=== PATIENT | female | born 1940 | race Caucasian/White ===

== ENCOUNTER 2018-09-08 02:08 | Outpatient (CLI) | payer MEDICARE, SELFPAY ==
[2018-09-08 11:29] LABS: Hemoglobin A1C 5.9 % (4.5-6.2)
[2018-09-08 11:32] LABS: ALT 20 U/L (12-78); AST 14 U/L (15-37); Albumin 3.7 g/dL (3.4-5.0); Alkaline Phosphatase 77 U/L (46-116); Anion Gap 13.5 mmol/L (3-11); BUN 31 mg/dL (7-18); Bilirubin, Total 0.5 mg/dL (0.2-1.0); CO2 23.5 mmol/L (21.0-32.0); CREATININE 1.44 mg/dL (0.55-1.02); Calcium 9.5 mg/dL (8.5-10.1); Calculated LDL 98 mg/dL; Chloride 97 mmol/L (98-107); Cholesterol 177 mg/dL (50-200); Estimated GFR 35.11 (mL/min/1.73m2); Glucose 103 mg/dL (70-100); HDL Cholesterol 59 mg/dL (40-60); Potassium 4.5 mmol/L (3.5-5.1); Sodium 134 mmol/L (136-145); TSH (W/Ref FT4) 1.32 uIU/mL (0.358-3.74); Total Protein 7.1 g/dL (6.4-8.2); Triglyceride 101 mg/dL (30-150)
== END 2018-09-08 02:28 ==
PROVIDERS: PCP Family Medicine; Visit Provider Family Medicine
DX: E11.29 Type 2 diabetes mellitus with other diabetic kidney complication (principal); E78.5 Hyperlipidemia, unspecified
CPT/HCPCS: 36415; 80053; 80061; 83721; 83036; 84443

== ENCOUNTER 2019-11-10 02:53 | Outpatient (CLI) | payer MEDICARE, BC, SELFPAY ==
[2019-11-10 12:38] LABS: CREATININE 1.27 mg/dL (0.55-1.02); Calculated LDL 117 mg/dL (<100); Cholesterol 206 mg/dL (<200); Estimated GFR 40.39 (mL/min/1.73m2); HDL Cholesterol 56 mg/dL (40-60); Potassium 4.5 mmol/L (3.5-5.1); Triglyceride 165 mg/dL (<150)
[2019-11-10 12:46] LABS: Hemoglobin A1C 5.8 % (<5.7)
== END 2019-11-10 03:13 ==
PROVIDERS: PCP Nurse Practitioner; Visit Provider Nurse Practitioner
DX: I10 Essential (primary) hypertension (principal); E11.22 Type 2 diabetes mellitus with diabetic chronic kidney disease; N18.3 Chronic kidney disease, stage 3 (moderate)
CPT/HCPCS: 36415; 80061; 82565; 83036; 84132

== ENCOUNTER 2020-10-24 07:39 | Outpatient (REF) | payer MEDICARE, BC, SELFPAY ==
[2020-10-24 16:50] LABS: HGB 13.3 g/dL (11.2-15.7); MCH 27.5 pg (27.0-33.0); MCHC 30.9 % (32.0-36.0); MCV 88.8 fL (80-95); MPV 9.3 fL (8.0-11.0); Platelet Count 341 10^3/uL (130-400); RBC 4.84 10^6/uL (3.93-5.22); RDW 14.6 % (11.7-14.6); RDW-SD 47.2 fL; WBC 8.43 10^3/uL (4.4-10.8)
[2020-10-24 17:09] LABS: ALT 19 U/L (14-59); AST 17 U/L (15-37); Albumin 3.7 g/dL (3.4-5.0); Alkaline Phosphatase 86 U/L (46-116); Anion Gap 11.8 mmol/L (3-11); BUN 18 mg/dL (7-18); Bilirubin, Total 0.4 mg/dL (0.2-1.0); CO2 23.2 mmol/L (21.0-32.0); CREATININE 1.4 mg/dL (0.55-1.02); Calcium 9.4 mg/dL (8.5-10.1); Calculated LDL 113 mg/dL (<100); Chloride 106 mmol/L (98-107); Cholesterol 206 mg/dL (<200); Glucose 116 mg/dL (74-106); HDL Cholesterol 53 mg/dL (40-60); Potassium 4.8 mmol/L (3.5-5.1); Sodium 141 mmol/L (136-145); Total Protein 7.4 g/dL (6.4-8.2); Triglyceride 201 mg/dL (<150)
[2020-10-24 17:10] LABS: Hemoglobin A1C 6.3 % (<5.7)
== END 2020-10-24 07:40 | disposition home or self-care (01) ==
LOC: LBN 07:39
PROVIDERS: Visit Provider Nurse Practitioner Family
DX: E11.9 Type 2 diabetes mellitus without complications (principal); I10 Essential (primary) hypertension; M54.9 Dorsalgia, unspecified; R32 Unspecified urinary incontinence; E78.5 Hyperlipidemia, unspecified
CPT/HCPCS: 80053; 80061; 85027; 83036

== ENCOUNTER 2022-02-21 18:00 | Outpatient (REF) | payer MEDICARE, SELFPAY ==
[2022-02-21 18:27] LABS: Anion Gap 8.2 mmol/L (3-11); BUN 28 mg/dL (7-18); CO2 23.8 mmol/L (21.0-32.0); CREATININE 1.2 mg/dL (0.55-1.02); Calcium 9.1 mg/dL (8.5-10.1); Calculated LDL 89 mg/dL (<100); Chloride 106 mmol/L (98-107); Cholesterol 177 mg/dL (<200); Estimated GFR 44.91 (mL/min/1.73m2); Glucose 90 mg/dL (74-106); HDL Cholesterol 54 mg/dL (40-60); Potassium 4.4 mmol/L (3.5-5.1); Sodium 138 mmol/L (136-145); Triglyceride 173 mg/dL (<150)
[2022-02-21 18:34] LABS: Hemoglobin A1C 6.2 % (<5.7)
== END 2022-02-21 18:01 | disposition home or self-care (01) ==
LOC: NCHCN 18:00
PROVIDERS: Visit Provider Nurse Practitioner Family
DX: E78.5 Hyperlipidemia, unspecified (principal); E11.9 Type 2 diabetes mellitus without complications; N18.30 Chronic kidney disease, stage 3 unspecified
CPT/HCPCS: 80048; 80061; 83036

== ENCOUNTER 2022-07-17 17:55 | Outpatient (REF) | payer MEDICARE, SELFPAY ==
[2022-07-17 19:26] LABS: Abs Immature Grans 0.03 10^3/uL (0.0-0.06); Absolute Basophil Count 0.03 10^3/uL (0.0-0.2); Absolute Eosinophil Count 0.28 10^3/uL (0.0-0.7); Absolute Lymphocyte Count 2.57 10^3/uL (1.2-3.4); Absolute Neutrophil Count 5.76 10^3/uL (1.2-6.7); Basophils % 0.3; HCT 44.4 % (36.0-46.0); HGB 13.9 g/dL (11.2-15.7); Immature Grans % 0.3; Lymphocytes % 27.1; MCHC 31.3 % (32.0-36.0); MCV 86 fL (80-95); MPV 9.1 fL (8.0-11.0); Monocytes % 8.4; Neutrophils % 60.9; Platelet Count 301 10^3/uL (130-400); RBC 5.15 10^6/uL (3.93-5.22); RDW 14.6 % (11.7-14.6); RDW-SD 46.6 fL; WBC 9.47 10^3/uL (4.4-10.8)
[2022-07-17 19:31] LABS: Anion Gap 9.7 mmol/L (3-11); BUN 31 mg/dL (7-18); CO2 25.3 mmol/L (21.0-32.0); CREATININE 1.2 mg/dL (0.55-1.02); Calcium 9.6 mg/dL (8.5-10.1); Chloride 105 mmol/L (98-107); Estimated GFR 44.91 (mL/min/1.73m2); Glucose 115 mg/dL (74-106); Potassium 4.7 mmol/L (3.5-5.1); Sodium 140 mmol/L (136-145)
[2022-07-17 19:47] LABS: Hemoglobin A1C 6.3 % (<5.7)
[2022-07-17 20:31] LABS: Vitamin D 25 Total 45.5 ng/mL (30-100)
== END 2022-07-17 17:56 | disposition home or self-care (01) ==
LOC: NCHCN 17:55
PROVIDERS: Visit Provider Nurse Practitioner Family
DX: E11.9 Type 2 diabetes mellitus without complications (principal); E78.5 Hyperlipidemia, unspecified; I10 Essential (primary) hypertension; N18.30 Chronic kidney disease, stage 3 unspecified; R32 Unspecified urinary incontinence
CPT/HCPCS: 80048; 82306; 83036; 85025

== ENCOUNTER 2023-03-18 12:49 | Outpatient (REF) | payer MEDICARE, SELFPAY ==
[2023-03-18 15:41] LABS: ALT 18 U/L (14-59); AST 19 U/L (15-37); Albumin 3.4 g/dL (3.4-5.0); Alkaline Phosphatase 80 U/L (46-116); BUN 27 mg/dL (7-18); Bilirubin, Total 0.5 mg/dL (0.2-1.0); CREATININE 1.4 mg/dL (0.55-1.02); Calcium 9.7 mg/dL (8.5-10.1); Chloride 104 mmol/L (98-107); Glucose 147 mg/dL (74-106); Potassium 4.4 mmol/L (3.5-5.1); Sodium 137 mmol/L (136-145); Total Protein 7.9 g/dL (6.4-8.2)
[2023-03-18 15:59] LABS: Hemoglobin A1C 6.1 % (<5.7)
== END 2023-03-18 12:50 | disposition home or self-care (01) ==
LOC: NCHCN 12:49
PROVIDERS: PCP Nurse Practitioner Family; Visit Provider Nurse Practitioner Family
DX: Z00.00 Encounter for general adult medical examination without abnormal findings (principal)
CPT/HCPCS: 80053; 83036

== ENCOUNTER 2023-09-12 20:41 | Emergency (ER) | payer MEDICARE, SELFPAY ==
[2023-09-12] VITALS (24 sets, daily range): BP systolic 191–243; BP diastolic 51–142; PULSE 75–87; RESP 24; TEMP 37.4; O2SAT 90–94
--- NOTE | 2023-09-12 20:45 | RT.EKG_ITS ---
APPROVED REPORT Exam: Resting ECG Reason for Exam: short of breath Patient Location: E HR:79 bpm ECG Measurements Heart Rate 79 AXIS NV 334 P 155 QRSd 161 QRS 17 QT 410 T -6 QTc 470 Conclusion Sinus or ectopic atrial rhythm...P axis (-45,135) Prolonged NV interval...NV >220, V-rate 50- 90 Right bundle branch block...QRSd>120, terminal axis(90,270)
--- NOTE | 2023-09-12 21:00 | DI.RAD_ITS ---
Exam(s) XR CHEST 2V PA LATERAL EXAM: XR CHEST 2V PA LATERAL CLINICAL HISTORY: SOB TECHNIQUE: 2D digital imaging was performed. Two views. COMPARISON: No exams were available for comparison FINDINGS: Exam extremely limited due to under penetration, particularly AP view. HEART: Mildly enlarged. Aorta: Not dilated. PULMONARY VASCULATURE: Grossly normal for projection. MEDIASTINUM: Unremarkable. LUNGS: Grossly clear where visualized.. PLEURAL SPACE: No pleural effusion or pneumothorax. BONE:Unremarkable for age. SOFT TISSUES: Unremarkable. IMPRESSION: Limited exam. No acute abnormality. DATA REPOSITORY: RADIATION DOSE DELIVERED:
--- NOTE | 2023-09-12 21:00 | DI.RAD_ITS ---
Exam(s) XR FOOT LT COMPLETE EXAM: XR FOOT LT COMPLETE CLINICAL HISTORY: r/o osteomyelitis, distal fifth metatarsal (sore). TECHNIQUE: 2D digital imaging was performed. Three views. COMPARISON: No exams were available for comparison FINDINGS: BONES: No acute fracture is present. No bony destructive lesion is seen. Small heel spurs. JOINTS: No dislocation present. Mild degenerative changes at 1st MTP joint. SOFT TISSUE: Swelling. No foreign body. No visible gas collection. IMPRESSION: Unremarkable radiographs of the left foot. No findings of osteomyelitis. DATA REPOSITORY: RADIATION DOSE DELIVERED:
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
[2023-09-12 21:11] LABS: Abs Immature Grans 0.02 10^3/uL (0.0-0.06); Absolute Basophil Count 0.02 10^3/uL (0.0-0.2); Absolute Eosinophil Count 0.38 10^3/uL (0.0-0.7); Absolute Lymphocyte Count 2.48 10^3/uL (1.2-3.4); Absolute Monocyte Count 0.77 10^3/uL (0.1-0.8); Absolute Neutrophil Count 4.72 10^3/uL (1.2-6.7); Basophils % 0.2 %; Eosinophils % 4.5 %; HCT 39.5 % (36.0-46.0); HGB 12.5 g/dL (11.2-15.7); Immature Grans % 0.2 %; Lymphocytes % 29.6 %; MCH 26.8 pg (27.0-33.0); MCHC 31.6 % (32.0-36.0); MCV 85 fL (80-95); MPV 8.4 fL (8.0-11.0); Monocytes % 9.2 %; Neutrophils % 56.3 %; Platelet Count 268 10^3/uL (130-400); RBC 4.67 10^6/uL (3.93-5.22); RDW-SD 45.5 fL; WBC 8.39 10^3/uL (4.4-10.8)
[2023-09-12 21:15] LABS: ESR 46 mm/hr (0-30); Lab Add On Test DONE
[2023-09-12 21:34] LABS: ALT 17 U/L (14-59); AST 14 U/L (15-37); Albumin 3.3 g/dL (3.4-5.0); Alkaline Phosphatase 82 U/L (46-116); BUN 20 mg/dL (7-18); Bilirubin, Total 0.44 mg/dL (0.2-1.0); C-Reactive Protein 2.12 mg/dL (<or=0.5); CREATININE 1.3 mg/dL (0.55-1.02); Calcium 9.2 mg/dL (8.5-10.1); Chloride 106 mmol/L (98-107); Estimated GFR 40.55 (mL/min/1.73m2); Glucose 97 mg/dL (74-106); NT-proBNP 662 pg/mL (<300); Potassium 4.1 mmol/L (3.5-5.1); Sodium 138 mmol/L (136-145); Total Protein 7.7 g/dL (6.4-8.2)
[2023-09-12 21:57] LABS: TSH (W/Ref FT4) 1.04 uIU/mL (0.36-3.74)
--- NOTE | 2023-09-12 22:12 | NUR.NOTE ---
Nursing Note: handoff report to ZAK Villanueva
--- NOTE | 2023-09-12 22:22 | DI.VRAD_ITS ---
PROCEDURE INFORMATION: Exam: XR Chest Exam date and time: 09/12/2023 9:36 PM Age: 82 years old Clinical indication: Shortness of breath; Additional info: SOB TECHNIQUE: Imaging protocol: Radiologic exam of the chest. Views: 2 views. COMPARISON: No relevant prior studies available. FINDINGS: Lungs: Minimal bibasilar atelectasis. No focal consolidations or pulmonary edema. Pleural spaces: Unremarkable. No pleural effusion. No pneumothorax. Heart/Mediastinum: Normal. Bones/joints: Multilevel thoracic spine degenerative disc space narrowing and osteophyte formation. IMPRESSION: No acute cardiopulmonary abnormality. Dictated and Authenticated by: Harry Byrne MD. Ordering:MARY Cannon MD
--- NOTE | 2023-09-12 22:34 | DI.VRAD_ITS ---
PROCEDURE INFORMATION: Exam: XR Left Foot Exam date and time: 09/12/2023 9:31 PM Age: 82 years old Clinical indication: Other: R/O osteomyelitis, distal fifth metatarsal (sore); Additional info: R/O osteomyelitis, distal fifth metatarsal (sore) TECHNIQUE: Imaging protocol: Radiologic exam of the left foot. Views: 3 or more views. COMPARISON: No relevant prior studies available. FINDINGS: Bones/joints: Small plantar calcaneal enthesophyte. Mild degenerative changes of the 1st MTP, with mild joint space narrowing minimal osteophyte formation. No acute fracture or dislocation. No radiographic evidence of acute osteomyelitis. Soft tissues: Mild dorsal forefoot soft tissue swelling, possibly edema and/or cellulitis. IMPRESSION: 1. Mild dorsal forefoot soft tissue swelling, possibly edema and/or cellulitis. 2. No radiographic evidence of acute osteomyelitis. Dictated and Authenticated by: Harry Byrne MD. Ordering:MARY Cannon MD
[2023-09-12] MEDS: Furosemide 20 MG TAB PO (23:28)
[2023-09-12] MEDS: Cephalexin 500 MG CAP PO (23:28)
== END 2023-09-12 23:31 | disposition home or self-care (01) ==
PROVIDERS: Emergency Provider Nurse Practitioner Family; PCP Nurse Practitioner Family
DX: R22.43 Localized swelling, mass and lump, lower limb, bilateral (principal); L03.116 Cellulitis of left lower limb; E11.22 Type 2 diabetes mellitus with diabetic chronic kidney disease; I12.9 Hypertensive chronic kidney disease with stage 1 through stage 4 chronic kidney disease, or unspecified chronic kidney disease; N18.30 Chronic kidney disease, stage 3 unspecified; E78.5 Hyperlipidemia, unspecified; E66.01 Morbid (severe) obesity due to excess calories
CPT/HCPCS: 80053; 85652; 87077; 93005; 99284; 71046; 73630; 83880; 84443; 85025; 86140; 87070; 87205; 93010; 99283

== ENCOUNTER 2023-10-17 16:48 | Outpatient (REF) | payer MEDICARE, SELFPAY ==
[2023-10-17 16:23] LABS: Anion Gap 8.4 mmol/L (3-11); BUN 28 mg/dL (7-18); CO2 27.6 mmol/L (21.0-32.0); CREATININE 1.4 mg/dL (0.55-1.02); Calcium 9.6 mg/dL (8.5-10.1); Chloride 101 mmol/L (98-107); Estimated GFR 36.87 (mL/min/1.73m2); Glucose 89 mg/dL (74-106); Potassium 4.6 mmol/L (3.5-5.1); Sodium 137 mmol/L (136-145)
== END 2023-10-17 16:49 | disposition home or self-care (01) ==
LOC: NCHCN 16:48
PROVIDERS: PCP Nurse Practitioner Family; Visit Provider Nurse Practitioner Family
DX: I12.9 Hypertensive chronic kidney disease with stage 1 through stage 4 chronic kidney disease, or unspecified chronic kidney disease (principal)
CPT/HCPCS: 80048

== ENCOUNTER 2023-10-23 14:34 | Inpatient (IN) | payer MEDICARE, SELFPAY ==
[2023-10-23] VITALS (12 sets, daily range): BP systolic 145–178; BP diastolic 30–70; PULSE 63–74; RESP 17–22; TEMP 36.7–37.4; O2SAT 94–96
--- NOTE | 2023-10-23 14:45 | DI.US_ITS ---
Exam(s) US EXTREMITY VENOUS BI EXAM: US EXTREMITY VENOUS BI CLINICAL HISTORY: bilateral leg swelling. TECHNIQUE: Bilateral lower extremity venous ultrasound performed using grayscale, color-flow, and sp ectral Doppler analysis. COMPARISON: No exams were available for comparison FINDINGS: The right common femoral, femoral and popliteal veins demonstrate normal compressibility, augmentatio n, and color Doppler. The posterior tibial and peroneal veins are patent. The saphenofemoral junctio n is unremarkable. 2.8 x 1.3 x 2.6 cm right popliteal fossa cyst. The soft tissues are unremarkable . The left common femoral, femoral and popliteal veins demonstrate normal compressibility, augmentation , and color Doppler. The posterior tibial and peroneal veins are patent. The saphenofemoral junction is unremarkable. There is no evidence of a Hinojosa's cyst. The soft tissues are unremarkable. IMPRESSION: 1. No evidence of a right lower extremity DVT. 2. No evidence of a left lower extremity DVT. DATA REPOSITORY:
--- NOTE | 2023-10-23 14:45 | DI.RAD_ITS ---
Exam(s) XR CHEST 2V PA LATERAL EXAM: XR CHEST 2V PA LATERAL CLINICAL HISTORY: ?chf TECHNIQUE: 2D digital imaging was performed of the chest. Two images were obtained. PA and lateral views were obtained. COMPARISON: CR,XR XR CHEST 2V PA LATERAL from 09/12/2023 FINDINGS: MEDIASTINUM: Mediastinal contours unchanged with rightward deviation of the trachea. HEART: Cardiomegaly. PULMONARY VASCULATURE: There is pulmonary venous congestion. LUNGS: No focal consolidating infiltrates are seen. PLEURAL SPACE: No pleural effusion or pneumothorax. BONE:Within normal limits for the patient's age. OTHER FINDINGS:There is elevation of the right hemidiaphragm. IMPRESSION: Cardiomegaly and pulmonary venous congestion. DATA REPOSITORY: RADIATION DOSE DELIVERED:
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
--- OUTSIDE RECORDS SUMMARY | 2023-10-23 14:56 | XMS_ITS | Continuity of Care Document ---
Author Organization [facility] [place] [address] Care Team Providers Care Emergency Management Director Name Role Phone PARAMJIT GUADARRAMA Primary Care Provider Assessment No assessment recorded. Plan of Treatment Reminders Order Date Submit Date Provider Last Modified By Organization Details Last Modified Time Details Appointments Home Visit 024 11:00AM Not available Not available Not available Lab None recorde d. Referral None recorde d. Procedures None recorde d. Surgeries None recorde d. Imaging None recorde d. Medication Orders None recorde d. Patient TargetsNo targets recorded. Patient Instructions Encounter Date Encounter Id Patient Instructions Last Modified By Organization Details Last Modified Time 09/17/2023 [id number] medicines to avoid with kidney disease: care instructions [email or web address] Not available 09/17/2023 20:18:38 learning about anxiety disorders [email or web address] Not available 09/17/2023 20:18:38 leg and ankle edema: care instructions [email or web address] Not available 09/17/2023 20:18:38 high blood pressure: care instructions [email or web address] Not available 09/17/2023 20:18:38 learning about high blood pressure [email or web address] Not available 09/17/2023 20:18:38 type 2 diabetes: care instructions [email or web address] Not available 09/17/2023 20:18:37 Not available 09/17/2023 15:39:19 You have a home visit scheduled for 11-12-23 at 11 AM. Referral placed for home health evaluation and wound care. Expect a phone call within the next 2 days to schedule an appointment at your house. You may decrease your antibiotic to three times daily (instead of 4 days). Urinary incontinence pads ordered from [employer]. Please call with questions. Lets see how the home nurses can help. [email or web address] Not available 09/17/2023 15:47:05 Reason for Referral Primary concern is for hyper granulation requiring debridement; however, cannot rule out concerns for neoplastic process. Home health is providing home wound care, is concerned about atypical appearance. Referring Physician: Paramjit Guadarrama, Family Medicine, Encounter Date: 10/12/2023 Results Created Date Observation Date Name Description Value Unit Range Abnormal Flag LastModifiedBy Organization Detail LastModifiedTime 09/12/19 24 09/12/2023 vrad repor t Patien t Name: Aquiles Angelo Unit #: [id number] Loc: ER Orderi ng Provid er: Accoun t #: [id number] Status : PRE ER Primar y Care Provid er: PARAMJIT GUADARRAMA MORTAR CARRIER Date of Exam: 08/31 04/26 Sex: F : 1940 Age: 82 Exam(s ) PROCED URE INFORM ATION: Exam: XR Chest Exam date and time: 024 9:36 PM Age: 82 years old Clinic al indica tion: Shortn ess of breath ; Additi onal info: SOB TECHNI QUE: Imagin g protoc ol: Radiol ogic exam of the chest. Views: 2 views. COMPAR OFE: No releva nt prior studie s availa ble. FINDIN GS: Lungs: Minima l bibasi lar atelec tasis. No focal consol idatio ns or pulmon garrison edema. Pleura l spaces : Unrema rkable . No pleura l effusi on. No pneumo thorax . Heart/ Medias tinum: Normal . Bones/ joints : Multil evel thorac ic spine degene rative disc space narrow ing and osteop hyte format ion. IMPRES NATASHA: No acute cardio pulmon garrison abnorm ality. Dictat ed and Authen ticate d by: Harry Byrne MD. Orderi ng:Zhao thompson MD Access ion#=[id number] Ordere d By: CC: ------ ------ ------ ------ ------ ------ ------ ------ ------ ------ ------ ------ ---- Dictat ed By: Report s vrad 2135 Transc ribed By: Isabella Merge 2135 This is privil eged, confid ential inform ation intend ed only for the provid er named. Any use or distri bution by any person other than this provid er is strict ly prohib ited. If you receiv e this report in error, please notify us immedi ately at and return the origin al report to us at the addres s above. Thank- you. [email or web address] [address] [place], [address] 09/12/2023 22:46:02 09/12/19 24 09/12/2023 vrad raegan juarez Name: Aquiles Angelo Unit #: [id number] Loc: ER Orderi ng Provid er: Accjulian t #: [id number] Status : REG ER Primar y Care Provid er: PARAMJIT GUADARRAMA NP Date of Exam: 08/31 04/26 Sex: F : 1940 Age: 82 Exam(s ) PROCED URE INFORM ATION: Exam: XR Left Foot Exam date and time: 024 9:31 PM Age: 82 years old Clinic al indica tion: Other: R/O osteom yeliti s, distal fifth metata rsal (sore) ; Additi onal info: R/O osteom yeliti s, distal fifth metata rsal (sore) TECHNI QUE: Imagin g protoc ol: Radiol ogic exam of the left foot. Views: 3 or more views. COMPAR OFE: No releva nt prior studie s availa ble. FINDIN GS: Bones/ joints : Small planta r calcan eal enthes ophyte . Mild degene rative change s of the 1st MTP, with mild joint space narrow ing minima l osteop hyte format ion. No acute fractu re or disloc ation. No radiog raphic eviden ce of acute osteom yeliti s. Soft tissue s: Mild dorsal forefo ot soft tissue swelli ng, possib ly edema and/or cellul itis. IMPRES NATASHA: 1. Mild dorsal forefo ot soft tissue swelli ng, possib ly edema and/or cellul itis. 2. No radiog raphic eviden ce of acute osteom yeliti s. Dictat ed and Authen ticate d by: Harry Byrne MD. Orderi ng:Zhao thompson MD Access ion#=[id number] Ordere d By: CC: ------ ------ ------ ------ ------ ------ ------ ------ ------ ------ ------ ------ ---- Dictat ed By: Report s vrad 2130 Transc ribed By: Isabella Merge 2130 This is privil eged, confid ential inform ation intend ed only for the provid er named. Any use or distri bution by any person other than this provid er is strict ly prohib ited. If you receiv e this report in error, please notify us immedi ately at and return the origin al report to us at the addres s above. Thank- you. [email or web address] [address], [place], [address] 09/12/2023 22:46:02 09/13/19 24 09/13/2023 x-ray imagi ng repor t Patien t Name: Aquiles Angelo Unit #: [id number] Loc: ER Charmaine braswell Provid er: Laureen Oconnor t #: [id number] Status : DEP ER Primar y Care Provid er: PARAMJIT GUADARRAMA NP Date of Exam: 08/31 04/26 Sex: F Admiss ion Date: : 1940 Age: 82 Exam(s ) XR FOOT LT COMPLE TE EXAM: XR FOOT LT COMPLE TE CLINIC AL HISTOR Y: r/o osteom yeliti s, distal fifth metata rsal (sore) . TECHNI QUE: 2D digita l imagin g was perfor med. Three views. COMPAR OFE: No exams were availa ble for compar ofe FINDIN GS: BONES: No acute fractu re is presen t. No bony destru ctive lesion is seen. Small heel spurs. JOINTS : No disloc ation presen t. Mild degene rative change s at 1st MTP joint. SOFT TISSUE : Swelli ng. No foreig n body. No visibl e gas collec tion. IMPRES NATASHA: Unrema rkable radiog raphs of the left foot. No findin gs of osteom yeliti s. DATA REPOSI TORY: RADIAT ION DOSE DELIVE RED: Ordere d By: Laureen Oconnor CC: ------ ------ ------ ------ ------ ------ ------ ------ ------ ------ ------ ------ - Dictat ed By: Sulma Cordoba 614 Transc ribed By: Norma Casas 614 This is privil eged, confid ential inform ation intend ed only for the provid er named. Any use or distri bution by any person other than this [facility] er is strict ly prohib ited. If you receiv e this report in error, please notify us immedi ately at and return the origin al report to us at the addres s above. Thank- you. [email or web address] [address] [place], [address] 09/13/2023 08:32:56 09/13/19 24 09/13/2023 x-ray imagi ng repor t Patien t Name: Aquiles Angelo Unit #: [id number] Loc: ER Orderi ng Provid er: Laureen Oconnor Accoun t #: [id number] Status : DEP ER Primar y Care Provid er: PARAMJIT GUADARRAMA MORTAR CARRIER Date of Exam: 08/31 04/26 Sex: F Admiss ion Date: : 1940 Age: 82 Exam(s ) XR CHEST 2V PA LATERA L EXAM: XR CHEST 2V PA LATERA L CLINIC AL HISTOR Y: SOB TECHNI QUE: 2D digita l imagin g was perfor med. Two views. COMPAR OFE: No exams were availa ble for compar ofe FINDIN GS: Exam extrem mc limite d due to under penetr ation, partic ularly AP view. HEART: Mildly enlarg ed. Aorta: Not dilate d. PULMON GARRISON VASCUL ATURE: Grossl y normal for projec tion. MEDIAS TINUM: Unrema rkable . LUNGS: Grossl y clear where visual ized.. PLEURA L SPACE: No pleura l effusi on or pneumo thorax . BONE:U nremar kable for age. SOFT TISSUE S: Unrema rkable . IMPRES NATASHA: Limite d exam. No acute abnorm ality. DATA REPOSI TORY: RADIAT ION DOSE DELIVE RED: Ordere d By: Laureen Oconnor CC: ------ ------ ------ ------ ------ ------ ------ ------ ------ ------ ------ ------ - Dictat ed By: Sulma Cordoba 615 Transc ribed By: Norma Casas 615 This is privil eged, confid ential inform ation intend ed only for the provid er named. Any use or distri bution by any person other than this provid er is strict ly prohib ited. If you receiv e this report in error, please notify us immedi ately at and return the origin al report to us at the addres s above. Thank- you. [address], [place], [address] 09/13/2023 08:32:57 Result Notes None recorded. Problems Name Status Onset Date Resolution Date Notes Provider Name and Address Organization Details Recorded Time Pain in thoracic spine Active [address], [place], [address] , [facility] 4 08:17:41 Macular corneal dystrophy Active 021 DORY MOISE [address], [place], [address] , [facility] 4 08:18:01 Type 2 diabetes mellitus without complication Active 021 D[address] MOISE [address], [place], [address] , [facility] 4 08:17:49 Essential hypertension Active [address], [place], [address] , [facility] 4 08:17:32 Severe obesity Active [address], [place], [address] , [facility] 4 08:17:45 Hyperlipidemia Active [address], [place], [address] , [facility]. 4 08:17:37 Urinary incontinence Active [address], [place], [address] , [facility] 4 08:17:55 Chronic kidney disease stage 3 Active [address], [place], [address] , [facility] 4 08:17:28 Osteoarthritis Completed 021 10/13/2020 Problem Code: M19.90; Problem Code Type: ICD-10; Not Available [facility] 3 05:34:37 Counseling Completed 021 03/20/2021 Problem Code: Z71.89; Problem Code Type: ICD-10; Not Available [facility] 3 05:34:37 Disorder of cholesterol metabolism Completed 021 10/13/2020 Problem Code: E78.70; Problem Code Type: ICD-10; Not Available [facility] 3 05:34:37 Chronic low back pain Active [address], [place], [address] , [facility] 4 08:17:20 Lumbosacral radiculopathy Active [address], [place], [address] , [facility] 4 14:34:57 Anxiety disorder Active [address], [place], [address] , [facility]. 4 08:17:17 History of malignant neoplasm of uterine body Active [address], [place], [address] , [facility]. 4 12:59:03 Pressure injury Active [address], [place], [address] , [facility]. 4 19:56:19 Edema of lower extremity Active [address], [place], [address] , [facility]. 4 19:56:24 Problem Notes None recorded. Medical Equipment None Reported. Allergies Allergen ID Allergen Name Allergen Category Reaction Reaction Severity Criticality Documentation Date Start Date Code Code System Note Provider Name and Address Organization Details Recorded Time 53606 lemon allergeni c extract food,medi cation Not available Not available Not available 01/10/20232021 08053 2 RxNorm Not Available [facility] 3 16:21:55 24572 Solanum (organism ) Not available Not available Not available Not available 01/10/20232021 61875 000 SNOMED Aller gyNam e: 'CHELSIE TOES' ; Not Available [facility] 3 16:21:55 Medications Name Sig Start Date Stop Date Status Note LastModified by Organization Details LastModified Time multivita min tablet Take 1 tablet by mouth once a day active Not Available Not Available No t Available metformin 500 mg tablet TAKE ONE TABLET BY MOUTH TWICE A DAY active Not Available Not Available No t Available oxybutyni n chloride ER 15 mg tablet,ex tended release 24 hr Take 1 tablet by mouth every evening 07/15 completed Not Available Not Available Not Available oxybutyni n chloride ER 10 mg tablet,ex tended release 24 hr TAKE ONE TABLET BY MOUTH EVERY DAY FOR URINARY FREQUENC Y active Not Available Not Available No t Available metoprolo l succinate ER 50 mg tablet,ex tended release 24 hr TAKE ONE TABLET BY MOUTH EVERY DAY active Not Available Not Available No t Available metoprolo l succinate ER 200 mg tablet,ex tended release 24 hr TAKE ONE TABLET BY MOUTH EVERY DAY active Not Available Not Available No t Available prednison e 20 mg tablet Take two tablets once daily for 5 days; then take one tablet for 5 days. 09/16 completed Not Available Not Available Not Available simvastat in 10 mg tablet TAKE ONE TABLET BY MOUTH EVERY DAY FOR CHOLESTE ROL active Not Available Not Available No t Available Carla Low Dose Aspirin 81 mg tablet,de layed release Take 1 tablet by mouth once a day active Not Available Not Available No t Available baclofen 10 mg tablet TAKE ONE TABLET BY MOUTH TWICE A DAY NEEDED active Not Available Not Available No t Available cephalexi n 500 mg capsule TAKE ONE CAPSULE BY MOUTH FOUR TIMES A DAY FOR 6 DAYS active Not Available Not Available No t Available timolol 0.5 % eye drops Instill 1 drop into both eyes twice a day active Not Available Not Available No t Available nitroglyc juan j 0.4 mg sublingua l tablet Place 1 tablet under tongue as needed Use every 5 to 15 minutes as needed active Not Available Not Available No t Available gabapenti n 300 mg capsule TAKE ONE CAPSULE BY MOUTH THREE TIMES A DAY active Not Available Not Available No t Available furosemid e 20 mg tablet TAKE ONE TABLET BY MOUTH EVERY DAY DIRECTED active Not Available Not Available No t Available Ibuprofen IB 200 mg tablet Take 3 tablet by mouth twice a day as needed 10/13 completed Not Available Not Available Not Available oxybutyni n chloride 5 mg tablet Take 1 tablet by mouth twice a day 10/17 completed Not Available Not Available Not Available losartan 100 mg tablet TAKE ONE TABLET BY MOUTH EVERY DAY active Not Available Not Available No t Available levalbute rol HFA 45 mcg/actua tion aerosol inhaler Inhale 2 puff every six hours as needed 10/13 completed Not Available Not Available Not Available dietary supplemen t active Prevagen Brain Suppleme nt Not Available Not Available Not Available Acetamino phen Pain Relief 500 mg tablet Take 1 tablet by mouth every six hours as needed active Not Available Not Available No t Available melatonin 5 mg capsule Take 1 capsule by mouth at bedtime 01/11 completed Not Available Not Available Not Available Myrbetriq 25 mg tablet,ex tended release Take 1 tablet by mouth every evening 10/18 completed Not Available Not Available Not Available lancets 28 gauge Use 1 lancet as directed as needed 09/29 completed Not Available Not Available Not Available baclofen 5 mg tablet TAKE 1 TABLET TWICE A DAY BY MOUTH NEEDED 04/01 completed Not Available Not Available Not Available Vitals Date Recorded Body weight Heart rate Oxygen saturation Oxygen saturation in Arterial blood by Pulse oximetry Body temperature Systolic blood pressure Diastolic blood pressure Provider Name and Address Organization Details Last Updated DateTime 4 727785. 75 g 75 /min 96 % 96 % 97.7 [degF] 130 mm[Hg] 74 mm[Hg] Latosha Sykes MA [facility] 15:01:51 Social History None recorded. Functional Status None recorded. Mental Status None recorded. Family History Nothing Reported. Medical History No medical history recorded. Gynecological HistoryNo gynecological history recorded. Obstetrics History GPAL:G 0 P 0 0 0 0 Immunizations Vaccine Type Date Status Provider Name and Address Organization Details Recorded Time Influenza, high-dose, quadrivalent, PF 01/21/2023 completed NATASHA friedman [facility] 01/21/2023 13:30:51 COVID-19, mRNA, LNP-S, PF, janna-sucrose, 30 mcg/0.3 mL 01/21/2023 completed NATASHA friedman [facility] 01/21/2023 13:30:51 Tdap 03/02/2015 completed Not Available [facility] 05:15:21 Td(adult) unspecified formulation 06/04/2007 completed Not Available [facility] 01/10/2023 05:15:21 SARS-COV-2 (COVID-19) vaccine, UNSPECIFIED 04/19/2020 completed Not Available [facility] 01/10/2023 05:15:22 SARS-COV-2 (COVID-19) vaccine, UNSPECIFIED 05/17/2020 completed Not Available [facility] 01/10/2023 05:15:22 SARS-COV-2 (COVID-19) vaccine, UNSPECIFIED 01/31/2021 completed Not Available [facility] 01/10/2023 05:15:22 COVID-19, mRNA, LNP-S, bivalent, PF, 30 mcg/0.3 mL dose 02/21/2022 completed Not Available [facility] 01/11/20 05:15:22 pneumococcal polysaccharide PPV23 11/01/2005 completed Not Available [facility] 2022 05:15:22 influenza, unspecified formulation 11/05/2011 completed Not Available [facility] 01/10/2023 05:15:22 influenza, unspecified formulation 12/02/2013 completed Not Available [facility] 01/10/2023 05:15:22 influenza, unspecified formulation 12/20/2014 completed Not Available [facility] 01/10/2023 05:15:22 influenza, unspecified formulation 12/25/2010 completed Not Available [facility] 01/10/2023 05:15:22 influenza, unspecified formulation 01/04/2010 completed Not Available [facility] 01/10/2023 05:15:22 influenza, unspecified formulation 02/01/2014 completed Not Available [facility] 01/10/2023 05:15:22 Past Encounters Encounter ID Performer Location Encounter Start Date Encounter Closed Date Diagnosis/Indication Diagnosis SNOMED-CT Code [id number] DORY MOISE [facility] [address] [place] [address] 09/17/2023 14:46:52 09/17/2023 16:44:28 Urinary incontinence 291750660 Pressure injury 35003258 07 Edema of l ower extremity 969465727 Type 2 yanna betes mellitus without complication 565386748 Essential hypertension 69912064 Chronic ki dney disease stage 3 237622596 Anxiety disorder 6451901 06 Pain in th oracic spine 870401686 Health Concerns Section Related Observation LastModified by Organization Detai ls LastModified Time None Recorded Concern Status LastModified by Organization Details LastModified Time None Recorded Payers Encounter Date Sequence Insurance Name Policy Number Policy [place] Covered Member ID [place] Member ID Guarantor Name 09/17/2023 1 [id number]A [place]ANTAGE - PPO) [id number] Mary Ann Harmon O'Segovia [id number] Mary Ann Harmon Roseann Notes Date Note Type Note Provider Name and Address Organization Details Recorded Time 09/17/2023 text/html HPI Notes: Aquiles solis presents [facility] care today for acute ER follow-up. Recent ER evaluation for cellulitis + pedal edema. Improvement in cellulitis of the lower extremities over the past several days with Keflex + completed 4 days of furosemide. Daughter has been completing bandage changes at home. Continues to struggle with swelling of the lower extremities. Denies any recent fevers or chills, worsening swelling to the legs, chest pain, shortness of breath, nausea vomiting or diarrhea. Has been elevating legs when possible at home. Multiple comorbidities, to include hypertension, type 2 diabetes, hyperlipidemia, urinary incontinence, chronic kidney disease stage III, anxiety and depression, history of uterine cancer, and obesity. Historically, home bound related to frequent urinary incontinence, despite use of protective undergarments. PARAMJIT GUADARRAMA, DORY [address], [place], [address], [facility]. 2023 08:03:08 OBGyn Episode No OBEpisode recorded.
[2023-10-23 15:04] LABS: BE (Venous) 1 mmol/L (-2-3); HCO3 (Venous) 26 mmol/L (23-28); O2 Sat (Venous) 46 %; TCO2 (Venous) 24 mmol/L (24-29); pCO2 (Venous) 46 mmHg (41-51); pH (Venous) 7.36 (7.31-7.41); pO2 (Venous) 27 mmHg
[2023-10-23 15:07] LABS: Abs Immature Grans 0.08 10^3/uL (0.0-0.06); Basophils % 0.2 %; Eosinophils % 0.1 %; HCT 36.7 % (36.0-46.0); HGB 11.7 g/dL (11.2-15.7); Immature Grans % 0.5 %; Lymphocytes % 9.5 %; MCH 26.8 pg (27.0-33.0); MCHC 31.9 % (32.0-36.0); MCV 84 fL (80-95); MPV 8.7 fL (8.0-11.0); Monocytes % 5.4 %; Neutrophils % 84.3 %; Platelet Count 231 10^3/uL (130-400); RBC 4.36 10^6/uL (3.93-5.22); RDW 15.5 % (11.7-14.6); RDW-SD 47.1 fL; WBC 17.34 10^3/uL (4.4-10.8)
[2023-10-23 15:08] LABS: Absolute Basophil Count 0.03 10^3/uL (0.0-0.2); Absolute Eosinophil Count 0.02 10^3/uL (0.0-0.7); Absolute Lymphocyte Count 1.65 10^3/uL (1.2-3.4); Absolute Monocyte Count 0.94 10^3/uL (0.1-0.8); Absolute Neutrophil Count 14.62 10^3/uL (1.2-6.7); ESR 23 mm/hr (0-30)
[2023-10-23 15:20] LABS: ALT 14 U/L (14-59); AST 35 U/L (15-37); Albumin 2.8 g/dL (3.4-5.0); Alkaline Phosphatase 67 U/L (46-116); Anion Gap 10.7 mmol/L (3-11); BUN 41 mg/dL (7-18); Bilirubin, Total 0.77 mg/dL (0.2-1.0); CO2 26.3 mmol/L (21.0-32.0); Calcium 9.3 mg/dL (8.5-10.1); Chloride 92 mmol/L (98-107); Estimated GFR 14.77 (mL/min/1.73m2); Glucose 92 mg/dL (74-106); Magnesium 1.5 mg/dL (1.8-2.4); Sodium 129 mmol/L (136-145); Total Protein 7.2 g/dL (6.4-8.2)
[2023-10-23 15:27] LABS: C-Reactive Protein > 25.00 mg/dL (<or=0.5)
[2023-10-23 15:48] LABS: Procalcitonin 16.9 ng/mL
[2023-10-23] MEDS: cefTRIAXone 2 GM/50 ML BAG IVPB (16:28)
[2023-10-23] MEDS: MAGNESIUM SULFATE 1 GM/100 ML BAG IVINF ×2 (17:06→23:34)
[2023-10-23] MEDS: VANCOMYCIN/WATER (PEG) 1 GM/200 ML BAG IVPB (18:09)
--- NOTE | 2023-10-23 18:31 | W.PC.ACHO ---
Registration Status: Primary Language: Preferred Language: ED Information & Data Chief Complaint GenMedical 10/23/23 14:56 Triage Note Underlying wound to left 10/23/23 14:35 lower leg. Consult w/ surgeon tomorrow. Home health nurse today noted concern w/ increased redness . 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) (Last Updated 06/29/19 @ 13:09 by Una Mosley NP) Status post cholecystectomy Endometrial Biopsy (12/03/12) Cholecystectomy Most Recent Vital Signs Temperature 37.4 C 10/23/23 14:35 Pulse 66 10/23/23 18:02 Respiratory Rate 22 10/23/23 14:35 Respiratory Effort Normal, Non-Labored 10/23/23 14:46 Blood Pressure 150/34 H 10/23/23 18:02 Blood Pressure Mean 77 10/23/23 18:02 Pulse Oximetry 96 10/23/23 17:46 Oxygen Delivery Method Room Air 10/23/23 14:35 Oxygen Flow Rate 0 10/23/23 14:35 Allergies lemon Allergy (Intermediate, Verified 09/12/23 20:49) Skin Rash tomato Allergy (Intermediate, Verified 09/12/23 20:49) Skin Rash IV IV Catheter Type [Left Peripheral IV Antecubital] Diagnostics 10/23/23 Range/Units 14:58 WBC 17.34 H (4.4-10.8) 10^3/uL RBC 4.36 (3.93-5.22) 10^6/uL Hgb 11.7 (11.2-15.7) g/dL Hct 36.7 (36.0-46.0) % MCV 84 (80-95) fL MCH 26.8 L (27.0-33.0) pg MCHC 31.9 L (32.0-36.0) % RDW 15.5 H (11.7-14.6) % Plt Count 231 (130-400) 10^3/uL MPV 8.7 (8.0-11.0) fL Immature Gran % 0.5 % Neutrophils % 84.3 % Lymphocytes % 9.5 % Monocytes % 5.4 % Eosinophils % 0.1 % Basophils % 0.2 % Nucleated RBC % 0.0 (0.0-0.3) % Absolute Neutrophils 14.62 H (1.2-6.7) 10^3/uL Absolute Lymphocytes 1.65 (1.2-3.4) 10^3/uL Absolute Monocytes 0.94 H (0.1-0.8) 10^3/uL Absolute Eosinophils 0.02 (0.0-0.7) 10^3/uL Absolute Basophils 0.03 (0.0-0.2) 10^3/uL ESR 23 (0-30) mm/hr VBG pH 7.36 (7.31-7.41) VBG pCO2 46 (41-51) mmHg VBG pO2 27 mmHg VBG HCO3 26 (23-28) mmol/L VBG Total CO2 24 (24-29) mmol/L VBG O2 Saturation 46 % VBG Base Excess 1 (-2-3) mmol/L Sodium 129 L (136-145) mmol/L Potassium 4.0 (3.5-5.1) mmol/L Chloride 92 L (98-107) mmol/L Carbon Dioxide 26.3 (21.0-32.0) mmol/L Anion Gap 10.7 (3-11) mmol/L BUN 41 H (7-18) mg/dL Creatinine 3.0 H (0.55-1.02) mg/dL Est GFR (CKD-EPI 2020) 14.77 (mL/min/1.73m2) Glucose 92 (74-106) mg/dL Calcium 9.3 (8.5-10.1) mg/dL Magnesium 1.5 L (1.8-2.4) mg/dL Total Bilirubin 0.77 (0.2-1.0) mg/dL AST 35 (15-37) U/L ALT 14 (14-59) U/L Alkaline Phosphatase 67 (46-116) U/L C-Reactive Protein > 25.00 H (<or=0.5) mg/dL Total Protein 7.2 (6.4-8.2) g/dL Albumin 2.8 L (3.4-5.0) g/dL Procalcitonin 16.9 ng/mL 10/23/23 15:32 Blood Culture - Pending Blood 10/23/23 15:25 Blood Culture - Pending Blood Intake and Output - 24 Hour Total 10/23/23 14:28 thru 10/23/23 14:35 Weight 134.5 kg Falls Risk Assessment History of Falls No History 10/23/23 14:45 Contributing Factors Impairments 10/23/23 14:45 Ambulatory Aids Uses ambulatory device 10/23/23 14:45 Tubes/Lines None 10/23/23 14:45 Gait Evaluation No gait disturbance 10/23/23 14:45 Cognition No cognitive impairment 10/23/23 14:45 Fall Total Score 18 10/23/23 14:45 Level of Risk Standard/Low Risk 10/23/23 14:45 v v v v v v v v v Sending and/or Receiving Nurses: Please use comment section below to note any information pertinent to the patient hand-off not included above. Information / Comments: Bilateral LL cellulitis, worse on left, failed oral antibiotics, kidney function effected, negative US, CXR shows cardiomegaly, WBC's elevated, daughter was disruptive in ER and asked to leave. Report received from:Rudy CRESPO
--- NOTE | 2023-10-23 18:50 | NUR.NOTE ---
Nursing Note:Patient arrived from ED, stand pivot to bed with assist of 2, max help, barely able to put weight on left leg, patient settled for night RN.
[2023-10-23] MEDS: Normal Saline Flush 10 ML SYR IVP (20:06)
[2023-10-23] MEDS: Normal Saline 1,000 ML 125 ML IV (21:30)
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
[2023-10-23 23:30] LABS: NT-proBNP 11954 pg/mL (<300)
[2023-10-24] MEDS: VANCOMYCIN/WATER (PEG) 2 GM/400 ML BAG IVPB (00:23)
[2023-10-24 00:24] LABS: Bilirubin Negative (Negative); Blood Trace-intact (Negative); Clarity Sl Cloudy (Clear); Glucose Negative (Negative); Ketones Negative (Negative); Leukocyte Esterase Moderate (Negative); Nitrite Negative (Negative); Specific Gravity 1.015 (1.005-1.025); Urobilinogen 0.2 mg/dL (Up to 0.2)
[2023-10-24] MEDS: Insulin Aspart 300 UNITS/3 ML PEN SC ×4 (00:24→20:54)
[2023-10-24 00:33] LABS: Bacteria Moderate HPF (Negative); Crystals Rare Calcium Oxalate HPF (Negative); Epithelial Cells Many HPF (Negative); Mucus Negative (Negative); RBC 0-2 HPF (0-2); WBC 20-50 HPF (0-5)
[2023-10-24 00:34] LABS: C & S Indicated? No/Sq. Contamination
[2023-10-24] MEDS: Metoprolol 50 MG TAB PO ×4 (00:37→17:53)
[2023-10-24 04:11] VITALS: BP 142/70; PULSE 66; RESP 18; TEMP 36.7; O2SAT 92
[2023-10-24 06:46] LABS: HCT 33.3 % (36.0-46.0); HGB 10.9 g/dL (11.2-15.7); MCH 26.9 pg (27.0-33.0); MCHC 32.7 % (32.0-36.0); MCV 82 fL (80-95); MPV 9.1 fL (8.0-11.0); Platelet Count 224 10^3/uL (130-400); RBC 4.05 10^6/uL (3.93-5.22); RDW 15.5 % (11.7-14.6); RDW-SD 46.7 fL; WBC 15.03 10^3/uL (4.4-10.8)
[2023-10-24 07:25] LABS: ALT 14 U/L (14-59); AST 26 U/L (15-37); Albumin 2.5 g/dL (3.4-5.0); Alkaline Phosphatase 68 U/L (46-116); Anion Gap 11.7 mmol/L (3-11); BUN 47 mg/dL (7-18); Bilirubin, Total 0.57 mg/dL (0.2-1.0); CO2 22.3 mmol/L (21.0-32.0); CREATININE 2.8 mg/dL (0.55-1.02); Calcium 8.9 mg/dL (8.5-10.1); Chloride 95 mmol/L (98-107); Estimated GFR 16.05 (mL/min/1.73m2); Glucose 144 mg/dL (74-106); Potassium 3.7 mmol/L (3.5-5.1); Sodium 129 mmol/L (136-145); Total Protein 6.7 g/dL (6.4-8.2)
[2023-10-24 07:48] VITALS: BP 136/48; PULSE 61; RESP 16; TEMP 36.6; O2SAT 95
[2023-10-24] MEDS: Aspirin 81 MG CHEW PO (08:20)
[2023-10-24] MEDS: Normal Saline Flush 10 ML SYR IVP (08:20)
[2023-10-24] MEDS: Simvastatin 10 MG TAB PO (08:20)
[2023-10-24] MEDS: Multivitamin w/Minerals TAB 1 TAB PO (08:20)
[2023-10-24] MEDS: Gabapentin 300 MG CAP PO ×2 (08:20→20:53)
[2023-10-24] MEDS: Baclofen 10 MG TAB PO (08:20)
[2023-10-24] MEDS: Oxybutynin 5 MG TAB 10 MG PO (08:20)
[2023-10-24] MEDS: Heparin 5,000 UNITS/ML VIAL 5000 UNITS SC ×2 (08:21→20:53)
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
[2023-10-24 11:17] VITALS: BP 125/41; PULSE 60; RESP 18; TEMP 37.2; O2SAT 96
--- NOTE | 2023-10-24 11:21 | PGE_ITS ---
Date of Service Date of service: 10/24/23 Time of Service: 11:21 Assessment and Plan Assessment and plan (1) Cellulitis of left leg: Status: Acute Assessment and plan: continue on ceftriaxone with vancomycin day 2 trend labs with elevated WBC and inflammatory markers no evidence of sepsis blood cultures pending (2) JILLIAN (acute kidney injury): Status: Acute Assessment and plan: elevated above baseline of 1.2-1.4 now at 3.0 continue gentle IV hydration renal dose meds and avoid nephrotoxic drugs (3) Hypomagnesemia: Status: Acute Assessment and plan: Patient has been on diuretics recently and does have low magnesium with normal potassium. IV magnesium repletion and trend labs. Hold diuretics for now. (4) Bilateral lower extremity edema: Status: Chronic Assessment and plan: Patient has had edema in the lower extremities on both legs for more than on Lasix just recently. This seems to have exacerbated her CKD with a GFR below 15. Venous Dopplers of lower extremity did not reveal any DVT. She will be on DVT prophylaxis. Echocardiogram pending (5) Essential hypertension: Status: Chronic Assessment and plan: Losartan on hold metoprolol could be increased for blood pressure control (6) Diabetes mellitus with renal manifestation: Status: Chronic Assessment and plan: Hold metformin continue glucometer measurements with sensitive sliding scale coverage with short acting insulin. Qualifiers: Diabetes mellitus type: type 2 Diabetes mellitus remote computer terminal operator insulin use: without remote computer terminal operator use Diabetes mellitus complication detail: with chronic kidney disease Chronic kidney disease stage: stage 3 (moderate) Chronic kidney disease stage 3 subtype: stage 3b (GFR 30-44) Qualified Code(s): E11.22 - Type 2 diabetes mellitus with diabetic chronic kidney disease; N18.32 - Chronic ki dney disease, stage 3b (7) Morbid (severe) obesity due to excess calories: Status: Chronic Assessment and plan: PT consultation She does plan to return home to her daughter. Discussed with Dr Ricci Subjective Subjective Patient reports: no new complaints, tolerating liquids well, tolerating a regular diet and afebrile; denies shortness of breath Exam Const General: cooperative, no acute distress and ill appearing chronically Nutritional Appearance: obese Orientation: alert, awake and oriented x3 HENMT Head: normal to inspection, normocephalic and atraumatic General nose exam: external nose normal Face and sinus: normal facial exam Mouth: moist mucous membranes Eyes General: appearance normal, both eyes and all related structures EOM: EOM intact bilaterally Neck Neck: normal visual inspection Chest Chest: normal inspection of the chest Resp Effort & Inspection: normal respiratory effort and able to speak in complete sentences Auscultation: diminished lung sounds Cardio Rate: regular rate GI Inspection: large pannus and obesity Skin General skin exam: erythema Neuro General: patient alert and patient oriented x3 Extrem General: edema Psych Mental Status: mental status grossly normal Objective Last Vital Signs Temp 37.2 C 10/24/23 11:17 Pulse 60 10/24/23 11:17 Resp 18 10/24/23 11:17 BP 125/41 L 10/24/23 11:17 Pulse Ox 96 10/24/23 11:17 Laboratory Results - last 24 hr 10/23/23 10/24/23 10/24/23 14:58 00:15 06:05 WBC 17.34 H 15.03 H RBC 4.36 4.05 Hgb 11.7 10.9 L Hct 36.7 33.3 L MCV 84 82 MCH 26.8 L 26.9 L MCHC 31.9 L 32.7 RDW 15.5 H 15.5 H Plt Count 231 224 MPV 8.7 9.1 Immature Gran % 0.5 Neutrophils % 84.3 Lymphocytes % 9.5 Monocytes % 5.4 Eosinophils % 0.1 Basophils % 0.2 Nucleated RBC % 0.0 Absolute Neutrophils 14.62 H Absolute Lymphocytes 1.65 Absolute Monocytes 0.94 H Absolute Eosinophils 0.02 Absolute Basophils 0.03 ESR 23 VBG pH 7.36 VBG pCO2 46 VBG pO2 27 VBG HCO3 26 VBG Total CO2 24 VBG O2 Saturation 46 VBG Base Excess 1 Sodium 129 L 129 L Potassium 4.0 3.7 Chloride 92 L 95 L Carbon Dioxide 26.3 22.3 Anion Gap 10.7 11.7 H BUN 41 H 47 H Creatinine 3.0 H 2.8 H Est GFR (CKD-EPI 2020) 14.77 16.05 Glucose 92 144 H Calcium 9.3 8.9 Magnesium 1.5 L 2.0 Total Bilirubin 0.77 0.57 AST 35 26 ALT 14 14 Alkaline Phosphatase 67 68 C-Reactive Protein > 25.00 H NT-Pro-B Natriuret Pep 71192 H Total Protein 7.2 6.7 Albumin 2.8 L 2.5 L Procalcitonin 16.9 Urine Color Yellow Urine Clarity Sl Cloudy Urine pH 5.0 Ur Specific [place] 1.015 Urine Protein 30 H Urine Ketones Negative Urine Blood Trace-intact H Urine Nitrite Negative Urine Bilirubin Negative Urine Urobilinogen 0.2 Ur Leukocyte Esterase Moderate H Urine RBC 0-2 Urine WBC 20-50 H Ur Epithelial Cells Many Urine Crystals Rare Calcium Oxalate Urine Bacteria Moderate Urine Mucus Negative Ur Culture Indicated? No/Sq. Contamination Urine Glucose Negative Time Spent with Patient Time Spent with Patient: >50 minutes Time was spent: preparing to see the patient(eg.review tests), obtaining and/or reviewing separately otained hiistory, ordering medications,tests, procedures, indepentently interpreting results and counseling the patient
[2023-10-24] MEDS: Normal Saline 1,000 ML 125 ML IV ×2 (11:53→20:55)
[2023-10-24 12:57] LABS: Vancomycin, Random 26.4 ug/mL
[2023-10-24] MEDS: cefTRIAXone 2 GM/50 ML BAG IVPB (15:11)
[2023-10-24 15:15] VITALS: BP 129/64; PULSE 58; RESP 16; TEMP 36.7; O2SAT 97
[2023-10-24 19:33] VITALS: BP 130/60; PULSE 60; RESP 16; TEMP 36.1; O2SAT 96
[2023-10-24] MEDS: Melatonin 3 MG TAB 6 MG PO (20:53)
[2023-10-24 21:37] LABS: Vancomycin, Random 22.6 ug/mL
[2023-10-24 23:17] VITALS: BP 130/60; PULSE 61; RESP 16; TEMP 36.9; O2SAT 94
[2023-10-25] MEDS: Metoprolol 50 MG TAB PO ×5 (00:23→23:44)
[2023-10-25 03:03] VITALS: BP 140/60; PULSE 60; RESP 16; TEMP 36.5; O2SAT 93
[2023-10-25] MEDS: Normal Saline 1,000 ML 125 ML IV ×3 (05:22→22:47)
[2023-10-25 06:24] VITALS: BP 153/52; PULSE 68; RESP 22; TEMP 36.7; O2SAT 95
[2023-10-25 06:27] LABS: Abs Immature Grans 0.06 10^3/uL (0.0-0.06); Absolute Basophil Count 0.02 10^3/uL (0.0-0.2); Absolute Eosinophil Count 0.15 10^3/uL (0.0-0.7); Absolute Lymphocyte Count 1.15 10^3/uL (1.2-3.4); Absolute Monocyte Count 0.76 10^3/uL (0.1-0.8); Absolute Neutrophil Count 8.53 10^3/uL (1.2-6.7); Basophils % 0.2 %; Eosinophils % 1.4 %; HCT 32.9 % (36.0-46.0); HGB 10.4 g/dL (11.2-15.7); Immature Grans % 0.6 %; Lymphocytes % 10.8 %; MCH 26.7 pg (27.0-33.0); MCHC 31.6 % (32.0-36.0); MCV 84 fL (80-95); Monocytes % 7.1 %; Neutrophils % 79.9 %; RDW 15.7 % (11.7-14.6); RDW-SD 48.5 fL; WBC 10.67 10^3/uL (4.4-10.8)
[2023-10-25 06:49] LABS: ALT 19 U/L (14-59); AST 27 U/L (15-37); Albumin 2.3 g/dL (3.4-5.0); Alkaline Phosphatase 74 U/L (46-116); Anion Gap 11.1 mmol/L (3-11); BUN 52 mg/dL (7-18); Bilirubin, Total 0.43 mg/dL (0.2-1.0); CO2 21.9 mmol/L (21.0-32.0); CREATININE 2.3 mg/dL (0.55-1.02); Calcium 8.6 mg/dL (8.5-10.1); Chloride 94 mmol/L (98-107); Estimated GFR 20.32 (mL/min/1.73m2); Glucose 150 mg/dL (74-106); Sodium 127 mmol/L (136-145); Total Protein 6.6 g/dL (6.4-8.2)
[2023-10-25 06:55] LABS: Diff Comment Diff Reviewed
[2023-10-25 06:56] LABS: Poikilocytes 1+
[2023-10-25] MEDS: Simvastatin 10 MG TAB PO (08:07)
[2023-10-25] MEDS: Gabapentin 300 MG CAP PO ×2 (08:07→19:56)
[2023-10-25] MEDS: Multivitamin w/Minerals TAB 1 TAB PO (08:07)
[2023-10-25] MEDS: Aspirin 81 MG CHEW PO (08:08)
[2023-10-25] MEDS: Oxybutynin 5 MG TAB 10 MG PO (08:08)
[2023-10-25] MEDS: Normal Saline Flush 10 ML SYR IVP (08:09)
[2023-10-25 09:36] LABS: Platelet Count 219 10^3/uL (130-400)
[2023-10-25 10:00] VITALS: BP 141/75; PULSE 65; RESP 18; TEMP 36.9; O2SAT 95
--- NOTE | 2023-10-25 10:46 | PT.INIE ---
Date of service: 10/25/23 Time of Service: 10:15 PT Notes Visit Reasons: Lower Extremity Cellulitis, JILLIAN, CKD, Hypomagnesem Inpatient Physical Therapy Evaluation Date: October 25, 2023 Referring Doctor: Candy Sprague PT Orders: PT CONSULT Precautions: Standard, falls Patient Profile/Admitting Diagnosis: Patient is an 83-year-old female admitted secondary to lower extremity cellulitis, JILLIAN, CKD and hypomagnesum. 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 Prior to admission reports independence with dressing, sponge bathing, and use of SPC for ambulation as well as furniture to assist in her mobility to the bathroom. Notes of low toilet and has significant difficulty standing from her toilet at home. Notes that she sleeps in her electric recliner. This assists her in getting up from a seated position. Notes increased fear of falling. Has not had any falls this past year however has been close x2. Current Functional Limitations: Sedentary. Pain and weakness bilateral LE left greater than right. Decreased activity tolerance requiring use of assistive device to ambulate. Sponge baths due to fear of falling. Does have a walk in shower with grab bars and bench however still does not feel comfortable and has not for multiple months. Has been currently utilizing single-point cane and furniture surfing throughout home to assist with her overall mobility. Equipment Owned/DME: SPC, rollator, electric recliner, walk in shower with bench and grab bars, notes low toilet and has a very difficult time standing. Subjective: Mary Ann is an 83 year old female referred for PT consult . Is agreeable to bed exam and exercises today however does not feel strong enough to get out of bed today. Knows that she needs to be able to do this to go home. Reports that she has been receiving home health PT to promote her strength however they recently cut down to 1x/week. Objective: General Observation: IV access right UE Mental Status: Alert and oriented x3 Pain: Declines pain while resting in bed Vital Signs: Monitored via Nursing ROM: Right Upper Extremity: Demonstrates WFL R UE ROM Left Upper Extremity: Demonstrates WFL L UE ROM Right Lower Extremity: Limited hip flexion 90 degrees due to pendulous abdomen, knee flexion 90 degrees, extension 0 degrees, limited ankle DF neutral Left Lower Extremity: Limited hip flexion 90 degrees due to pendulous abdomen, knee flexion 90 degrees, extension 0 degrees, DF netural Strength: Right Upper Extremity: Demonstrates good gravity resisted strength R UE Left Upper Extremity: Demonstrates good gravity resisted strength L UE Right Lower Extremity: Hip flexion 3/5, knee extension 4-/5, knee flexion 3+/5, DF 3+/5 Left Lower Extremity: Hip flexion 3/5, knee extension 4-/5, knee flexion 3+/5, DF 3+/5 Sensation: Intact to light touch Bed Mobility/Transfers: Supine to sit: modAx1 Sit-Supine: modAx1 Gait: Not assessed- refused at todays consult Balance: Static Sitting: Good Dynamic Sitting: Good Static Standing: Not assessed Dynamic Standing: Not assessed Special Tests: Mobility Limitations Standardized Measure [facility] AM-PAC 6 clicks Basic Mobility Inpatient Short Form: Raw Score: 8 CMS Score: 86% Therapeutic Exercise: ankles pumps x20, LAQ x10 R/L, glut sets x10, SLR x5 R/L. Informed Consent/Education: Patient instructed in purpose of PT consult and plan of care. Assessment: Patient is a 83year old female referred to physical therapy services with the diagnosis of lower extremity cellulitis, JILLIAN, CKD and hypomagnesem. Patient presents with clinical signs and symptoms consistent with diagnosis, as demonstrated by the following impairment level findings: impaired LE joint mobility, impaired motor function/muscle performance B LE, altered gait and balance requiring significant assistance for all transfers/bed mobility and ambulation. Impairments are contributing to the following functional limitations:decreased activity tolerance, assistance for all transfers, significant fear of falling, limited walking tolerance, LE weakness Patient is assessed as a Moderate 86714 complexity based on the following: History: As above Examination: As above Presentation: Evolving Decision Making: Moderate Goals: Goals X1 week 1. Supine-Sit Supervision 2. Sit-Supine Supervision 3. Sit-Stand Supervision 4. Stand-Sit Supervision 5. Bed-Chair CGA with FWW 6. Chair-Bed CGA with FWW 7. Gait CGA with FWW 100 ft or greater 8. Stairs up/down 4 steps with use of railing, CGA 9. Independent with home exercise program 10. Improved static and dynamic standing balance Plan of Care/Treatment Plan: 1-2x/day, 7 days/week x 1 week. Plan of care has been reviewed with the SOLAR INSTALLATION CREW SUPERVISOR providing the service under Physical Therapy direction. Initiate Physical Therapy intervention for strengthening, bed mobility, transfers, gait, stairs, balance training, use of assistive device. DISCHARGE RECOMMENDATIONS: Home with continued home health services versus [facility] facility for continued rehabilitation until stronger TREATMENT CODE/TIME: 95777, 30 minutes, IE Alix Pineda, [facility] Please sign an return this page within 30 days if you agree with the above POC. Thank you! Physician Signature Date [facility] Disclaimer: This note was created using [employer] voice recognition software. It was reviewed for major content. However, there may be multiple small discrepancies and errors due to the voice recognition aspects of the software.
[2023-10-25] MEDS: Heparin 5,000 UNITS/ML VIAL 5000 UNITS SC ×2 (10:58→19:55)
[2023-10-25 11:19] VITALS: BP 139/40; PULSE 63; RESP 19; TEMP 36.6; O2SAT 95
[2023-10-25] MEDS: Insulin Aspart 300 UNITS/3 ML PEN SC ×2 (11:29→22:07)
--- NOTE | 2023-10-25 15:04 | PGE_ITS ---
Date of Service Date of service: 10/25/23 Time of Service: 15:04 Assessment and Plan Assessment and plan (1) Cellulitis of left leg: Status: Acute Assessment and plan: continue on ceftriaxone with vancomycin day 2 trend labs with elevated WBC and inflammatory markers no evidence of sepsis blood cultures pending (2) JILLIAN (acute kidney injury): Status: Acute Assessment and plan: elevated above baseline of 1.2-1.4 now at 3.0 continue gentle IV hydration renal dose meds and avoid nephrotoxic drugs (3) Hypomagnesemia: Status: Resolved Assessment and plan: Patient has been on diuretics recently and does have low magnesium with normal potassium. IV magnesium repletion and trend labs. Hold diuretics for now. (4) Bilateral lower extremity edema: Status: Chronic Assessment and plan: Patient has had edema in the lower extremities on both legs for more than on Lasix just recently. This seems to have exacerbated her CKD with a GFR below 15. Venous Dopplers of lower extremity did not reveal any DVT. She will be on DVT prophylaxis. Echocardiogram pending (5) Essential hypertension: Status: Chronic Assessment and plan: Losartan on hold metoprolol could be increased for blood pressure control (6) Diabetes mellitus with renal manifestation: Status: Chronic Assessment and plan: Hold metformin continue glucometer measurements with sensitive sliding scale coverage with short acting insulin. Qualifiers: Chronic kidney disease stage: stage 3 (moderate) Chronic kidney disease stage 3 subtype: stage 3b (GFR 30-44) Diabetes mellitus complication detail: with chronic kidney disease Diabetes mellitus petroleum terminal plant operator insulin use: without petroleum terminal plant operator use Diabetes mellitus type: type 2 Qualified Code(s): E11.22 - Type 2 diabetes mellitus with diabetic chronic kidney disease; N18.32 - Chronic kidney disease, stage 3b (7) Morbid (severe) obesity due to excess calories: Status: Chronic Assessment and plan: PT consultation She does plan to return home to her daughter. Discussed with Dr Ricci Subjective Subjective Patient reports: no new complaints, feels better, tolerating liquids well, tolerating a regular diet, voiding w/o difficulty and afebrile; denies shortness of breath Exam Const General: cooperative, no acute distress and ill appearing chronically Nutritional Appearance: obese Orientation: alert, awake and oriented x3 HENMT Head: normal to inspection, normocephalic and atraumatic General nose exam: external nose normal Face and sinus: normal facial exam Mouth: moist mucous membranes Eyes General: appearance normal, both eyes and all related structures EOM: EOM intact bilaterally Neck Neck: normal visual inspection Chest Chest: normal inspection of the chest Resp Effort & Inspection: normal respiratory effort and able to speak in complete sentences Auscultation: diminished lung sounds Cardio Rate: regular rate GI Inspection: large pannus and obesity Skin General skin exam: erythema Neuro General: patient alert and patient oriented x3 Extrem General: edema Psych Mental Status: mental status grossly normal Objective Last Vital Signs Temp 36.6 C 10/25/23 11:19 Pulse 63 10/25/23 11:19 Resp 19 10/25/23 11:19 BP 139/40 L 10/25/23 11:19 Pulse Ox 95 10/25/23 11:19 Laboratory Results - last 24 hr 10/24/23 10/25/23 10/25/23 20:57 06:16 08:45 WBC 10.67 RBC 3.90 L Hgb 10.4 L Hct 32.9 L MCV 84 MCH 26.7 L MCHC 31.6 L RDW 15.7 H Plt Count MPV Immature Gran % 0.6 Neutrophils % 79.9 Lymphocytes % 10.8 Monocytes % 7.1 Eosinophils % 1.4 Basophils % 0.2 Nucleated RBC % 0.0 Absolute Neutrophils 8.53 H Absolute Lymphocytes 1.15 L Absolute Monocytes 0.76 Absolute Eosinophils 0.15 Absolute Basophils 0.02 RBC Morphology See Below Poikilocytosis 1+ Sodium 127 L Potassium 4.0 Chloride 94 L Carbon Dioxide 21.9 Anion Gap 11.1 H BUN 52 H Creatinine 2.3 H Est GFR (CKD-EPI 2020) 20.32 Glucose 150 H Calcium 8.6 Magnesium 2.0 Total Bilirubin 0.43 AST 27 ALT 19 Alkaline Phosphatase 74 Total Protein 6.6 Albumin 2.3 L Random Vancomycin 22.6 17.0 10/25/23 09:05 WBC RBC Hgb Hct MCV MCH MCHC RDW Plt Count 219 MPV Immature Gran % Neutrophils % Lymphocytes % Monocytes % Eosinophils % Basophils % Nucleated RBC % Absolute Neutrophils Absolute Lymphocytes Absolute Monocytes Absolute Eosinophils Absolute Basophils RBC Morphology Poikilocytosis Sodium Potassium Chloride Carbon Dioxide Anion Gap BUN Creatinine Est GFR (CKD-EPI 2020) Glucose Calcium Magnesium Total Bilirubin AST ALT Alkaline Phosphatase Total Protein Albumin Random Vancomycin Time Spent with Patient Time Spent with Patient: 35-49 minutes Time was spent: preparing to see the patient(eg.review tests), obtaining and/or reviewing separately otained hiistory, ordering medications,tests, procedures, indepentently interpreting results and counseling the patient
[2023-10-25] MEDS: cefTRIAXone 2 GM/50 ML BAG IVPB (15:33)
[2023-10-25] MEDS: VANCOMYCIN/WATER (PEG) 1 GM/200 ML BAG IVPB (16:38)
[2023-10-25 19:46] VITALS: BP 166/60; PULSE 75; RESP 19; TEMP 36.4; O2SAT 94
[2023-10-25] MEDS: Melatonin 3 MG TAB 6 MG PO (19:56)
[2023-10-25 23:59] VITALS: BP 164/52; PULSE 73; RESP 19; TEMP 36.4; O2SAT 93
[2023-10-26] VITALS (7 sets, daily range): BP systolic 152–191; BP diastolic 48–74; PULSE 59–73; RESP 18–19; TEMP 36.2–37.2; O2SAT 93–96
[2023-10-26] MEDS: Normal Saline 1,000 ML 125 ML IV (06:40)
[2023-10-26] MEDS: Metoprolol 50 MG TAB PO ×4 (06:40→23:57)
[2023-10-26 06:47] LABS: Abs Immature Grans 0.03 10^3/uL (0.0-0.06); Absolute Basophil Count 0.02 10^3/uL (0.0-0.2); Absolute Eosinophil Count 0.32 10^3/uL (0.0-0.7); Absolute Lymphocyte Count 1.19 10^3/uL (1.2-3.4); Absolute Monocyte Count 0.85 10^3/uL (0.1-0.8); Absolute Neutrophil Count 5.71 10^3/uL (1.2-6.7); Basophils % 0.2 %; Eosinophils % 3.9 %; HCT 31.9 % (36.0-46.0); HGB 10.3 g/dL (11.2-15.7); Immature Grans % 0.4 %; Lymphocytes % 14.7 %; MCH 26.5 pg (27.0-33.0); MCHC 32.3 % (32.0-36.0); MCV 82 fL (80-95); MPV 8.7 fL (8.0-11.0); Monocytes % 10.5 %; Neutrophils % 70.3 %; Platelet Count 244 10^3/uL (130-400); RBC 3.88 10^6/uL (3.93-5.22); RDW 15.4 % (11.7-14.6); RDW-SD 46.6 fL; WBC 8.12 10^3/uL (4.4-10.8)
[2023-10-26 06:59] LABS: Anion Gap 10.9 mmol/L (3-11); BUN 40 mg/dL (7-18); CO2 21.1 mmol/L (21.0-32.0); CREATININE 1.5 mg/dL (0.55-1.02); Chloride 99 mmol/L (98-107); Estimated GFR 33.94 (mL/min/1.73m2); Glucose 123 mg/dL (74-106); Sodium 131 mmol/L (136-145)
--- NOTE | 2023-10-26 07:06 | W.PM.PROGNOT ---
Date of Service Date of service: 10/26/23 Time of Service: 07:07 Assessment and Plan Assessment and plan (1) Cellulitis of left leg: Status: Acute Assessment and plan: area continues to improve continue on ceftriaxone with vancomycin day 3 trend labs with elevated WBC and inflammatory markers no evidence of sepsis blood cultures negative to date (2) JILLIAN (acute kidney injury): Status: Acute Assessment and plan: improving down to 1.5 from 3.0, likely was over diuresed stop IV hydration renal dose meds and avoid nephrotoxic drugs (3) Hypomagnesemia: Status: Resolved Assessment and plan: repleted and normalized, follow (4) Bilateral lower extremity edema: Status: Chronic Assessment and plan: Patient has had edema in the lower extremities on both legs for more than on Lasix just recently. This seems to have exacerbated her CKD with a GFR below 15. Venous Dopplers of lower extremity did not reveal any DVT. She will be on DVT prophylaxis. Echocardiogram pending (5) Essential hypertension: Status: Chronic Assessment and plan: Losartan on hold metoprolol could be increased for blood pressure control (6) Diabetes mellitus with renal manifestation: Status: Chronic Assessment and plan: Hold metformin continue glucometer measurements with sensitive sliding scale coverage with short acting insulin. Qualifiers: Chronic kidney disease stage: stage 3 (moderate) Chronic kidney disease stage 3 subtype: stage 3b (GFR 30-44) Diabetes mellitus complication detail: with chronic kidney disease Diabetes mellitus skilled nursing insulin use: without emt intermediate use Diabetes mellitus type: type 2 Qualified Code(s): E11.22 - Type 2 diabetes mellitus with diabetic chronic kidney disease; N18.32 - Chronic kidney disease, stage 3b (7) Morbid (severe) obesity due to excess calories: Status: Chronic Assessment and plan: PT consultation She does plan to return home to her daughter. Discussed with Dr Ricci Exam Const General: cooperative, no acute distress and ill appearing chronically Nutritional Appearance: obese Orientation: alert, awake and oriented x3 HENMT Head: normal to inspection, normocephalic and atraumatic General nose exam: external nose normal Face and sinus: normal facial exam Mouth: moist mucous membranes Eyes General: appearance normal, both eyes and all related structures EOM: EOM intact bilaterally Neck Neck: normal visual inspection Chest Chest: normal inspection of the chest Resp Effort & Inspection: normal respiratory effort and able to speak in complete sentences Auscultation: diminished lung sounds Cardio Rate: regular rate GI Inspection: large pannus and obesity Skin General skin exam: crusts, dry skin and erythema (Slowly improving) Rashes: rashes noted (left lower extremity slow to respond but at the skin markings.) Neuro General: patient alert and patient oriented x3 Extrem General: edema Psych Mental Status: mental status grossly normal Objective Last Vital Signs Temp 36.3 C L 10/26/23 06:39 Pulse 65 10/26/23 06:39 Resp 18 10/26/23 06:39 BP 181/48 H 10/26/23 06:39 Pulse Ox 93 10/26/23 06:39 Laboratory Results - last 24 hr 10/25/23 10/25/23 10/26/23 08:45 09:05 06:25 WBC 8.12 RBC 3.88 L Hgb 10.3 L Hct 31.9 L MCV 82 MCH 26.5 L MCHC 32.3 RDW 15.4 H Plt Count 219 244 MPV 8.7 Immature Gran % 0.4 Neutrophils % 70.3 Lymphocytes % 14.7 Monocytes % 10.5 Eosinophils % 3.9 Basophils % 0.2 Nucleated RBC % 0.0 Absolute Neutrophils 5.71 Absolute Lymphocytes 1.19 L Absolute Monocytes 0.85 H Absolute Eosinophils 0.32 Absolute Basophils 0.02 Sodium 131 L Potassium 4.0 Chloride 99 Carbon Dioxide 21.1 Anion Gap 10.9 BUN 40 H Creatinine 1.5 H Est GFR (CKD-EPI 2020) 33.94 Glucose 123 H Calcium 9.0 Random Vancomycin 17.0 Time Spent with Patient Time Spent with Patient: 35-49 minutes Time was spent: preparing to see the patient(eg.review tests), obtaining and/or reviewing separately otained hiistory, ordering medications,tests, procedures, indepentently interpreting results and counseling the patient
[2023-10-26] MEDS: Gabapentin 300 MG CAP PO ×2 (09:32→19:26)
[2023-10-26] MEDS: Oxybutynin 5 MG TAB 10 MG PO (09:32)
[2023-10-26] MEDS: Simvastatin 10 MG TAB PO (09:32)
[2023-10-26] MEDS: Multivitamin w/Minerals TAB 1 TAB PO (09:32)
[2023-10-26] MEDS: Aspirin 81 MG CHEW PO (09:32)
[2023-10-26] MEDS: Heparin 5,000 UNITS/ML VIAL 5000 UNITS SC ×2 (09:33→19:26)
[2023-10-26] MEDS: Normal Saline Flush 10 ML SYR IVP ×3 (09:34→19:43)
--- NOTE | 2023-10-26 12:22 | PT.INTREAT ---
PT Notes Visit Reasons: Lower Extremity Cellulitis, JILLIAN, CKD, Hypomagnesem Date: 10/26/2023 PRECAUTIONS: Standard fall SUBJECTIVE: Pt in bed when approached for therapy this morning, pt very anxious, refused getting out of bed, reports feeling very weak, agreed to trial sitting on the EOB and seated exercises. OBJECTIVE: ? PAIN: &/10 for BLE VITALS: monitored by nursing ? Therapeutic Activities 93853: Direct one-on-one instruction in dynamic activities to improve functional performance. ?? BED MOBILITY/TRANSFERS? Rolling L/R: min A Supine-sit: ?min A? Sit-supine: ?min A ? Provided skilled cues and instruction on performance and technique throughout. ? Therapeutic Exercises 08579: Direct one-on-one instruction in therapeutic exercises to develop strength, endurance, range of motion and flexibility. Provided skilled instruction in proper exercise performance Provided skilled manual cues to facilitate proper muscle recruitment and/or form: Exercises/techniques: ???Sitting unsupported EOB doing multidirectional reach trunk rotation lateral deviation Seated shoulder AROM all planes [id number] each, Seated marching, Seated lateral weight shifting L/R, SAQ, LAQ, seated hip abduction/adduction [id number]? ASSESSMENT:?pt initially having reflux after repositioning from supine to sitting, pt able to tolerate activity well and was able to stay in seated position without getting nauseous with pt reporting pain rief from repositioning. able to go back to semi bruner's position postession. bed setup for pillows for bolster and proper alignment while in bed. PLAN: Continue with balance training, global strengthening and general conditioning for improved safety, mobility and activity tolerance until pt is ready for DC. TREATMENT CODE/TIME: [id number], [id number] 25mins (9:50-10:15am)
[2023-10-26] MEDS: Nystatin POWDER 15 GM JAR TP ×2 (12:27→21:00)
[2023-10-26 13:33] LABS: Vancomycin, Trough 17.1 ug/mL (10.0-20.0)
[2023-10-26] MEDS: VANCOMYCIN/WATER (PEG) 1 GM/200 ML BAG IVPB (15:49)
[2023-10-26] MEDS: cefTRIAXone 2 GM/50 ML BAG IVPB (17:43)
[2023-10-26] MEDS: Insulin Aspart 300 UNITS/3 ML PEN SC ×2 (17:44→20:59)
[2023-10-26] MEDS: Melatonin 3 MG TAB 6 MG PO (19:26)
[2023-10-27 04:37] VITALS: BP 168/57; PULSE 67; RESP 16; TEMP 36.5; O2SAT 93
[2023-10-27] MEDS: Docusate Sodium 100 MG CAP PO (05:39)
[2023-10-27] MEDS: Polyethylene Glycol 3350 17 GM PACKET PO (05:39)
[2023-10-27] MEDS: Metoprolol 50 MG TAB PO ×2 (05:39→12:30)
[2023-10-27] MEDS: Milk of Magnesia 30 ML CUP PO (05:39)
[2023-10-27 07:49] VITALS: BP 187/55; PULSE 67; RESP 18; TEMP 36.3; O2SAT 94
--- NOTE | 2023-10-27 09:29 | PDOC.CMPRO ---
Date of service: 10/27/23 Time of Service: 09:29 Care Management Progress Note Discharge Potential Discharge Needs: PCP F/U Appt and Surgical F/U Appt Anticipated Barriers to Discharge: Medical Status Patient/Family Education Needs: Review discharge instructions, discuss Ask Me Three Transportation: Private vehicle Plan: Anticipate Mary Ann will be discharged home, possibly with a resumption of home health services, when medically cleared. She will follow up with her PCP, Cardiology and plan of care and transport with family. CM will follow and continue to assess for discharge needs. SDOH(Care Management) Screening Will the Patient Participate in the Screening?: Yes Do you worry about having a steady place to live?: no Problems where you live: no known problems In the past 12 months, have you had to go without electric, gas, oil or water in your home?: no Have you or anyone in your house had to go without enough food to eat?: no Has lack of transportation kept you from medical appointments or from doing things needed for daily living?: no Has anyone in your support network made you feel unsafe for any reason?: no
--- NOTE | 2023-10-27 09:42 | PDOC.HHF2F_ITS ---
Home Health Referral Home Health Orders Clinical synopsis of why skilled professionals are needed: Hospital Course: This 83-year-old female patient with a past medical history of diabetes mellitus type 2, hypertension, morbid obesity, endometrial adenocarcinoma presented to the ED at [facility] on 10/23/2023 for evaluation of left leg erythema, increased swelling with pain and ulcer over the posterior aspect starting a month prior to presentation. Workup in the ED was significant for WBC of 17.34, sodium of 129, BUN of 41 and creatinine of 3.0 with a GFR of 14. Magnesium was 1.5 and repleted. Chest x- ray showed cardiomegaly and pulmonary venous congestion. Bilateral venous ultrasound of the lower extremities showed no DVT. An echo cardiogram was completed and showed an LVEF of 65% without segmental wall motion abnormality. In the ED treatment was initiated for cellulitis with Rocephin and vancomycin. Hospitalist was contacted and the patient was admitted to the medical surgical floor for evaluation and management of lower extremity cellulitis, JILLIAN on CKD, hypomagnesemia. During the stay vancomycin was discontinued and treatment was pursued with IV Rocephin with improvement. Blood cultures showed no growth at 72 hours. The patient remained afebrile the admission to the floor. The patient will be discharged home on cefpodoxime and will have to follow-up with his primary care practitioner within 7 days of discharge. The patient will have a short course of probiotic added to the course. The patient will be discharged home with home health for nursing to monitor worsening of condition, physical therapy and Occupational Therapy as per physical therapy recommendation. Discussed with Dr. Ochoa Medical diagnosis necessitation home health referral: Left lower extremity cellulitis: Monitoring for worsening of the condition and new medicine regimen compliance Registered Nurse: Check all that apply Instruct on new or changed medication(s)/assess compliance: Ordered Assess for exacerbation of medical condition, instruct patient/caregivers on signs and symptoms to report for early detection: Ordered Physical Therapist: Check all that apply Increase strength & endurance for safe mobility at home: Ordered To design/establish home maintenance program: Ordered Fall reduction therapy program for patient with history of frequent falls: Ordered Home safety evaluation and teaching/gait training including stair management (if applicable): Ordered Occupational Therapist: Evaluate and treat for patient unable to perform ADL/IADL/self-care: Ordered Upper extremity strengthening, range and motion: Ordered Home Bound Status Requires the aid of supportive device (check all that apply): Walker Describe why leaving home would require a considerable and taxing effort: Requires frequent rest periods Encounter Date and Reason: I certify that a FTF encounter for this patient was performed on October 27, 2023 and that such encounter was related to the primary reason the patient requires home health services. The encounter was conducted in the following manner: * By me as the certifying physician, [employer], PA or * By an inpatient physician, INS[employer] FORMER or PA during an inpatient stay who communicated findings to me, Certification And Authentication I certify that I composed the above information based on my clinical judgment relating to this patient's medical condition and, if applicable, clinical findings communicated to me by the NPP or inpatient physician who performed the FTF encounter. Name of Provider that will be monitoring home health services: PARAMJIT ENRIQUEZ
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
[2023-10-27] MEDS: Heparin 5,000 UNITS/ML VIAL 5000 UNITS SC (09:44)
[2023-10-27] MEDS: Oxybutynin 5 MG TAB 10 MG PO (09:45)
[2023-10-27] MEDS: Multivitamin w/Minerals TAB 1 TAB PO (09:45)
[2023-10-27] MEDS: Aspirin 81 MG CHEW PO (09:46)
[2023-10-27] MEDS: Gabapentin 300 MG CAP PO (09:46)
[2023-10-27] MEDS: Nystatin POWDER 15 GM JAR TP (09:48)
[2023-10-27] MEDS: Normal Saline Flush 10 ML SYR IVP (09:49)
--- NOTE | 2023-10-27 10:53 | PTTR_ITS ---
PT Notes Visit Reasons: Lower Extremity Cellulitis, JILLIAN, CKD, Hypomagnesem Inpatient Physical Therapy treatment Note Date: 10/27/2023 Referring Doctor: Candy Sprague NP PT Orders: PT CONSULT Precautions: falls. Standard. Activity as tolerated. Patient Profile/Admitting Diagnosis: Patient is an 83-year-old female admitted secondary to lower extremity cellulitis, JILLIAN, CKD and hypomagnesum. PMHX: All Active Problems Bilateral lower extremity edema (Chronic) Hypomagnesemia (Acute) JILLIAN (acute kidney injury) (Acute) Cellulitis of left leg (Acute) Hyperlipidemia (Acute) CKD (chronic kidney disease) stage 3, GFR 30-59 ml/min (Chronic) Morbid (severe) obesity due to excess calories (Chronic) Essential hypertension (Chronic) Diabetes mellitus with renal manifestation (Chronic 06/02/14) Medical History Urinary frequency Dysfunctional uterine bleeding (12/10/12) Endocervical polyp (10/14/11) Lumbago Adenocarcinoma of endometrium (12/15/12) FIGO TYPE 2 Surgical History Status post cholecystectomy Endometrial Biopsy (12/03/12) FIGO GRADE 2 ADENOCARCINOMACholecystectomy Subjective: States that redness in left leg and foot has decreased. NO new symptoms. Has a device that she uses for pericare at home. Objective: General Observation: IV access right UE Mental Status: Alert and oriented x3 Pain: Declines pain while resting in bed Vital Signs: Monitored via Nursing Sensation: Intact to light touch Bed Mobility/Transfers: Supine to sit: stand by assist Sit-Supine: stand by assist Gait: Up to about 80 feet using bariatric walker with decreased calvin, stand by assist only. No report of pain. Gait step to. Balance: Static Sitting: Good Dynamic Sitting: Good Static Standing: Not assessed Dynamic Standing: Not assessed Assessment: Patient demonstrated improved mobility independence only requiring stand by assist for all mobility ADL performance with bariatric walker. Erythema to L leg and foot decreased but patient continues with antbiotic regimen of Ceftriaxone and Vancomycin at home per hospitalist. Has 4WW at home that she can use. Will have continued PT services at home to regain prior mobility level. No report of pain throughout session. Goals: Goals X1 week 1. Supine-Sit Supervision MET, DIsCONTINUE 2. Sit-Supine Supervision MET, DIsCONTINUE 3. Sit-Stand Supervision MET, DIsCONTINUE 4. Stand-Sit Supervision MET, DIsCONTINUE 5. Bed-Chair CGA with FWW MET, DIsCONTINUE 6. Chair-Bed CGA with FWW MET, DIsCONTINUE 7. Gait CGA with FWW 100 ft or greater MET, DIsCONTINUE 8. Stairs up/down 4 steps with use of railing, CGA NOT MET, CONTINUE 9. Independent with home exercise program CGA NOT MET, CONTINUE 10. Improved static and dynamic standing balance CGA NOT MET, CONTINUE DISCHARGE RECOMMENDATIONS: Home with continued home health services versus retirement facility for continued rehabilitation until stronger TREATMENT CODE/TIME: 00933 x 28 minutes for 2 units (10:53-11:25).
[2023-10-27 11:10] VITALS: BP 168/61; PULSE 66; RESP 18; TEMP 36.2; O2SAT 98
--- NOTE | 2023-10-27 17:30 | PDOC.CMDIS ---
Date of service: 10/27/23 Time of Service: 17:30 LACE Index Scoring Tool Questions: Length of Stay (in days): 4 - 6 Was the patient admitted via the E.D.?: Yes Comorbidities: Diabetes w/o Complication, Any Tumor and Liver or Renal Disease E.D. Visits: 2 Answers: Total Score: 14 Risk of Readmission: High Risk Care Management Discharge Plan Reason for Hospitalization: cellulitis Discharge Plan: Mary Ann was discharged home this afternoon and transported via RCT coordinated by [facility]. She will have a resumption of home health nursing with the addition of PT and OT and will follow up with her PCP and plan of care. After discharge CM received a phone call from Mary Ann's daughter, also named Mary Ann, with questions about her discharge plan. CM was able to answer her questions and Mary Ann verbalized understanding. Patient/Family Education Needs: Discharge instructions, activity, limitations, follow up plan and discuss Ask Me Three Services Needed at Discharge: Home Health Care Services (RN,PT,OT) SDOH Health Related Social Needs: No Data to Display
== END 2023-10-27 15:02 | disposition home health service (06) | DRG 603 ==
LOC: ER 18:10 → MS 22:40
PROVIDERS: Nurse Practitioner Acute Care; Admitting Provider Family Medicine; Emergency Provider Emergency Medicine; PCP Nurse Practitioner Family; Visit Provider Family Medicine
DX: L03.116 Cellulitis of left lower limb (principal); N17.9 Acute kidney failure, unspecified; Z68.43 Body mass index [BMI] 50.0-59.9, adult; E87.1 Hypo-osmolality and hyponatremia; E83.42 Hypomagnesemia; R60.0 Localized edema; N18.32 Chronic kidney disease, stage 3b; I12.9 Hypertensive chronic kidney disease with stage 1 through stage 4 chronic kidney disease, or unspecified chronic kidney disease; E11.22 Type 2 diabetes mellitus with diabetic chronic kidney disease; E66.01 Morbid (severe) obesity due to excess calories; Z79.84 Long term (current) use of oral hypoglycemic drugs; E78.5 Hyperlipidemia, unspecified
CPT/HCPCS: 00123; 36415; 80048; 80053; 82805; 84145; 85027; 85652; 87040; 96365; 96367; 97110; 97162; 97530; 99285; 71046; 80202; 81003; 81015; 83735; 83880; 85025; 85049; 86140; 93306; 93970; 99223; 99232; 99233; 99239; J0696; J1644; J1815; J3372; J3475

== ENCOUNTER 2024-06-01 18:23 | Outpatient (REF) | payer MEDICARE, SELFPAY ==
[2024-06-01 19:56] LABS: HCT 42.8 % (36.0-46.0); HGB 13.1 g/dL (11.2-15.7); MCHC 30.6 % (32.0-36.0); MCV 85 fL (80-95); MPV 9.4 fL (8.0-11.0); Platelet Count 269 10^3/uL (130-400); RBC 5.03 10^6/uL (3.93-5.22); RDW 16.7 % (11.7-14.6); RDW-SD 51.6 fL; WBC 8.54 10^3/uL (4.4-10.8)
[2024-06-01 20:20] LABS: Hemoglobin A1C 6.2 % (<5.7)
[2024-06-01 20:22] LABS: ALT 16 U/L (14-59); AST 15 U/L (15-37); Albumin 3.3 g/dL (3.4-5.0); Alkaline Phosphatase 71 U/L (46-116); Anion Gap 10.1 mmol/L (3-11); BUN 38 mg/dL (7-18); Bilirubin, Total 0.5 mg/dL (0.2-1.0); CO2 22.9 mmol/L (21.0-32.0); CREATININE 1.3 mg/dL (0.55-1.02); Calcium 9.8 mg/dL (8.5-10.1); Calculated LDL 79 mg/dL (<100); Chloride 108 mmol/L (98-107); Cholesterol 157 mg/dL (<200); Glucose 130 mg/dL (74-106); HDL Cholesterol 52 mg/dL (>or=50); Potassium 4.7 mmol/L (3.5-5.1); Sodium 141 mmol/L (136-145); Total Protein 7.1 g/dL (6.4-8.2); Triglyceride 132 mg/dL (<150)
== END 2024-06-01 18:24 | disposition home or self-care (01) ==
LOC: NCHCN 18:23
PROVIDERS: PCP Nurse Practitioner Family; Visit Provider Nurse Practitioner Family
DX: E78.5 Hyperlipidemia, unspecified (principal); E11.9 Type 2 diabetes mellitus without complications; N18.30 Chronic kidney disease, stage 3 unspecified
CPT/HCPCS: 80053; 80061; 85027; 83036

== ENCOUNTER 2025-02-16 17:59 | Outpatient (REF) | payer MEDICARE, SELFPAY ==
[2025-02-16 21:39] LABS: HCT 45.2 % (36.0-46.0); HGB 14.5 g/dL (11.2-15.7); MCH 27.5 pg (27.0-33.0); MCHC 32.1 % (32.0-36.0); MCV 86 fL (80-95); MPV 9.7 fL (8.0-11.0); Platelet Count 267 10^3/uL (130-400); RBC 5.28 10^6/uL (3.93-5.22); RDW 15.7 % (11.7-14.6); RDW-SD 48.5 fL; WBC 7.90 10^3/uL (4.4-10.8)
[2025-02-16 21:53] LABS: Hemoglobin A1C 6.0 % (<5.7)
[2025-02-16 21:56] LABS: ALT 10 U/L (10-49); AST 16 U/L (<34); Albumin 3.9 g/dL (3.2-5.0); Alkaline Phosphatase 95 U/L (46-116); Anion Gap 11.5 mmol/L (3-11); BUN 28 mg/dL (9-23); Bilirubin, Total 0.7 mg/dL (0.2-1.2); CO2 20.5 mmol/L (20.0-31.0); Calcium 9.3 mg/dL (8.3-10.6); Chloride 107 mmol/L (98-107); Glucose 108 mg/dL (74-106); Potassium 4.8 mmol/L (3.5-5.1); Sodium 139 mmol/L (136-145); Total Protein 7.2 g/dL (5.7-8.2)
== END 2025-02-16 18:00 | disposition home or self-care (01) ==
LOC: NCHCN 17:59
PROVIDERS: PCP Nurse Practitioner Family; Visit Provider Nurse Practitioner Family
DX: I10 Essential (primary) hypertension (principal); N28.9 Disorder of kidney and ureter, unspecified; E11.9 Type 2 diabetes mellitus without complications
CPT/HCPCS: 80053; 85027; 83036